=== PATIENT | male | born 2000 | race Caucasian/White ===

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

== ENCOUNTER 2021-08-01 23:22 | Emergency (ER) | payer MEDICAID ==
[2021-08-02] MEDS ORDERED: MOTRIN 600 MG PO ONE (00:10)
[2021-08-02] MEDS ORDERED: MOTRIN 600 MG ONE (00:15)
--- NOTE | 2021-08-02 00:15 | ERPHSYRPT ---
- History of Present Illness Time Seen by Provider: 08/01/21 23:38 Source: patient Exam Limitations: no limitations Patient Subjective Stated Complaint: pt states "my right shoulder started hurting about 3 hrs ago." Triage Nursing Assessment: pt ambulates by self to room and cot, pt alert and oriented x3, pt c/o r shoulder pain, pt denies injury, pt has full range of motion of r arm/shoulder, pt denies numbness or tingling in arm Physician History: 21 years old presented to ER with chief complaint of right shoulder pain for the last 3 hours sudden onset without any fall or trauma. Denies any strenuous activity. Pain is more in the upper shoulder/trapezius area with movements. No restricted range of motion. No numbness tingling weakness right upper extremity. Denies any radiculopathy. Occurred: this evening Method of Injury: unknown Quality: sharpness Severity of Pain-Max: moderate Severity of Pain-Current: moderate Extremities Pain Location: shoulder: right Modifying Factors: Improves With: immobilization. Worsens With: movement Associated Symptoms: none Allergies/Adverse Reactions: No Known Drug Allergies Allergy (Verified 08/01/21 23:27) Hx Tetanus, Diphtheria Vaccination/Date Given: No Hx Influenza Vaccination/Date Given: No Hx Pneumococcal Vaccination/Date Given: No Immunizations Up to Date: Yes Travel Risk - International Travel Have you traveled outside of the country in past 3 weeks: No - Coronavirus Screening Are you exhibiting any of the following symptoms?: No Close contact with a COVID-19 positive Pt in past 14-21 Days: No - Vaccine Status Have you recieved a Covid-19 vaccination: No - Review of Systems Constitutional: No Symptoms Ears, Nose, & Throat: No Symptoms Respiratory: No Symptoms Cardiac: No Symptoms Genitourinary Symptoms: No Symptoms Musculoskeletal: Joint Pain Skin: No Symptoms Neurological: No Symptoms Endocrine: No Symptoms Hematologic/Lymphatic: No Symptoms - Past Medical History Pertinent Past Medical History: Yes Neurological History: No Pertinent History ENT History: No Pertinent History Cardiac History: Arrhythmia Respiratory History: No Pertinent History Endocrine Medical History: No Pertinent History Musculoskeletal History: No Pertinent History GI Medical History: No Pertinent History History: No Pertinent History Psycho-Social History: Anxiety Male Reproductive Disorders: No Pertinent History Other Medical History: Cardioversion two years ago - Past Surgical History Past Surgical History: Yes Neuro Surgical History: No Pertinent History Cardiac: No Pertinent History Respiratory: No Pertinent History Gastrointestinal: No Pertinent History Genitourinary: No Pertinent History Musculoskeletal: No Pertinent History Male Surgical History: No Pertinent History - Social History Smoking Status: Current every day smoker How long have you smoked: 1 year Exposure to second hand smoke: No Drug Use: none Patient Lives Alone: No - Nursing Vital Signs Nursing Vital Signs: Initial Vital Signs Temperature 97.6 F 08/01/21 23:28 Pulse Rate 62 08/01/21 23:28 Respiratory Rate 18 08/01/21 23:28 Blood Pressure 130/89 08/01/21 23:28 O2 Sat by Pulse Oximetry 100 08/01/21 23:28 Pain Scale Pain Intensity 9 - Physical Exam General Appearance: no apparent distress Eyes, Ears, Nose, Throat Exam: normal ENT inspection Neck Exam: normal inspection, non-tender, supple, full range of motion, No limited range of motion, No tenderness lateral, No tenderness midline Cardiovascular/Respiratory Exam: chest non-tender, normal breath sounds, regular rate/rhythm Back Exam: normal inspection, normal range of motion Shoulder Exam: normal inspection, no evidence of injury, normal ROM, soft tissue tenderness (Right trapezius area and around coracoid process.) Elbow/Forearm Exam: normal inspection, non-tender, no evidence of injury, normal ROM Neuro/Tendon Exam: normal sensation, normal motor functions, normal tendon functions Mental Status Exam: alert, oriented x 3, cooperative Skin Exam: normal color SpO2 Interpretation: normal SpO2: 100 O2 Delivery: Room Air Ordered Tests: Active Orders 24 hr Category Date Time Status SHOULDER Stat Exams 08/01/21 00:03 Taken Medication Summary Discontinued Medications Generic Name Dose Route Start Last Admin Trade Name Freq PRN Reason Stop Dose Admin Ibuprofen 600 mg 08/02/21 00:10 Ibuprofen 600 Mg Tablet PO 08/02/21 00:11 STAT ONE - Progress Progress: pain not gone completely Progress Note: 08/02/21 00:13 He is offered Toradol but does not want shot, given ibuprofen. X-rays negative for any acute fracture dislocation. More of a muscular tenderness. Really patient has strain, recommended NSAIDs and outpatient follow-up. Counseled pt/family regarding: diagnosis, need for follow-up, rad results - Departure Departure Disposition: Home Clinical Impression: Right shoulder strain Condition: Stable Critical Care Time: No Referrals: SAM JIMENEZ MD [Primary Care Provider] - Follow Up with PCP/3 days ORTHO - USAMA ROGERS NP [NON-STAFF PHY W/O PRIVILEGES] - Follow up/PCP as directed (Call for appointment for reevaluation in the next 5 days) Instructions: Shoulder Tendinopathy (DC), Shoulder Sprain (DC) Additional Instructions: Avoid exertional activities. Follow-up with primary care/Ortho for reevaluation. Return to ER for worsening pain, difficulty movements, numbness tingling or weakness. Prescriptions: Ibuprofen 600 mg PO Q6HPRN PRN 10 Days #20 tablet PRN Reason: Pain
[2021-08-02 00:18] VITALS: BP 118/90; PULSE 57; O2SAT 98
--- NOTE | 2021-08-02 08:48 | XRAY ---
Indication: Pain. No known injury. Comparison: None 3 view right shoulder obtained. No bony, articular, or soft tissue abnormalities.
== END 2021-08-02 00:26 | disposition home or self-care (01) ==
LOC: ED 23:22
DX: S46.911A Strain of unspecified muscle, fascia and tendon at shoulder and upper arm level, right arm, initial encounter (principal); M25.511 Pain in right shoulder; Z72.0 Tobacco use; Z28.310 Unvaccinated for COVID-19
CPT/HCPCS: 73030; 99283; A9270-GY